=== PATIENT | female | born 1985 | race African-American/Black ===

== ENCOUNTER 2018-12-20 15:44 | Emergency (ER) | payer OTHER ==
[~2018-12-20] VITALS: Ht 162.6 cm; Wt 83.0 kg
[2018-12-20] MEDS ORDERED: PROCTOFOAM-HC F10 GM TOP (16:46)
[2018-12-20] MEDS ORDERED: LIDOCAINE 2%2 %/5 GM TOP (16:46)
[2018-12-20] MEDS ORDERED: MIRALAX17 GM PO (16:46)
[2018-12-20 17:37] VITALS: BP 123/55
== END 2018-12-20 17:30 | disposition home or self-care (01) ==
LOC: ER 15:44
DX: K64.4 Residual hemorrhoidal skin tags (principal); F17.210 Nicotine dependence, cigarettes, uncomplicated